=== PATIENT | female | born 1955 | race Caucasian/White ===

== ENCOUNTER 2017-08-31 11:49 | Inpatient (IN) ==
[2017-08-31] MEDS: CIPROFLOXACIN INJ 400 MG in PREMIX 1 EACH IV SCH (15:03)
[2017-08-31] MEDS: DEXTROSE 5% NACL 0.45% 1,000 ML IV SCH (15:03)
[2017-08-31] MEDS ORDERED: IBUPROFEN PO PRN (18:33)
[2017-08-31] MEDS ORDERED: DIPHENHYDRAMINE PO PRN (18:33)
[2017-08-31] MEDS: ATORVASTATIN 10 MG TABLET PO SCH (22:15)
[2017-08-31] MEDS: CLINDAMYCIN INJ 300 MG in PREMIX 1 EACH IV SCH (22:15)
[2017-09-01] MEDS: CIPROFLOXACIN INJ 400 MG in PREMIX 1 EACH IV SCH ×2 (02:37→13:43)
[2017-09-01] MEDS: CLINDAMYCIN INJ 300 MG in PREMIX 1 EACH IV SCH ×4 (04:02→21:18)
[2017-09-01] MEDS ORDERED: LEVOTHYROXINE 75 MCG TABLET PO SCH (06:30)
[2017-09-01 06:37] LABS: Basophils % 0.5 % (0.0-0.8); Eosinophils # 0.1 10*3/uL (0.0-0.87); Eosinophils % 1.1 % (0.00-10.9); Hematocrit 37.3 VOL% (35.7-47.0); Immature Granulocytes % 0.5 %; Immature Granulocytes Absolute 0.03 #; Lymphocytes # 0.8 10*3/uL (1.4-4.0); Lymphocytes % 13.3 % (21.3-54.2); Mean Corpuscular HGB Conc 34.9 GM/DL (32-36); Mean Corpuscular Hemoglobin 32 PG (27-34); Mean Platelet Volume 10.6 FL (9.6-12.0); Monocytes # 0.5 10*3/uL (0.11-0.8); Monocytes % 8.2 % (1.7-12.7); Neutrophils # 4.8 10*3/uL (1.4-7.4); Neutrophils % 76.4 % (38.7-73.9); Platelet Count 190 T/CUMM (130-400); Red Cell Distribution Width 13.2 % (9.3-17.3); White Blood Count 6.3 T/CUMM (4-12)
[2017-09-01 07:02] LABS: Albumin 3.2 G/DL (3.4-5.0); Bilirubin,Total 3.6 MG/DL (0.2-1.0); Calcium 8.6 MG/DL (8.5-10.1); Potassium 3.8 MMOL/L (3.5-5.1); Total Protein 5.7 G/DL (6.4-8.3)
[2017-09-01 07:05] LABS: Free T4 (Free Thyroxine) 1.27 NG/DL (0.76-1.46)
[2017-09-01] MEDS: DEXTROSE 5% NACL 0.45% 1,000 ML IV SCH (07:06)
[2017-09-01] MEDS ORDERED: ACETAMINOPHEN 325 MG TABLET PO PRN (07:37)
[2017-09-01] MEDS ORDERED: ONDANSETRON 4 MG/2 ML VIAL IV PRN (07:45)
[2017-09-01] MEDS: KETOROLAC 15 MG/1 ML VIAL IV PRN ×2 (07:52→17:57)
[2017-09-01] MEDS ORDERED: BISACODYL 5 MG TABLET PO ONE (08:58)
[2017-09-01] MEDS: SERTRALINE 50 MG TABLET PO SCH (08:59)
[2017-09-01] MEDS: metroNIDAZOLE INJ 500 MG in PREMIX 1 EACH IV SCH ×2 (12:06→19:16)
[2017-09-01] MEDS: ATORVASTATIN 10 MG TABLET PO SCH (21:18)
[2017-09-02] MEDS: CLINDAMYCIN INJ 300 MG in PREMIX 1 EACH IV SCH ×4 (01:32→22:16)
[2017-09-02] MEDS: CIPROFLOXACIN INJ 400 MG in PREMIX 1 EACH IV SCH ×2 (02:53→14:49)
[2017-09-02] MEDS: DEXTROSE 5% NACL 0.45% 1,000 ML IV SCH ×4 (02:54→22:19)
[2017-09-02] MEDS: metroNIDAZOLE INJ 500 MG in PREMIX 1 EACH IV SCH ×3 (04:51→20:32)
[2017-09-02] MEDS: LEVOTHYROXINE 50 MCG TABLET PO SCH (05:50)
[2017-09-02 07:01] LABS: Basophils % 0.5 % (0.0-0.8); Eosinophils # 0.3 10*3/uL (0.0-0.87); Hemoglobin 12.5 GM/DL (12.0-16.0); Immature Granulocytes % 0.3 %; Immature Granulocytes Absolute 0.02 #; Lymphocytes # 0.9 10*3/uL (1.4-4.0); Lymphocytes % 14.6 % (21.3-54.2); Mean Corpuscular HGB Conc 34.7 GM/DL (32-36); Mean Corpuscular Hemoglobin 32 PG (27-34); Mean Corpuscular Volume 91.4 FL (87-102); Mean Platelet Volume 11.1 FL (9.6-12.0); Monocytes # 0.6 10*3/uL (0.11-0.8); Monocytes % 10.6 % (1.7-12.7); Neutrophils # 4.1 10*3/uL (1.4-7.4); Platelet Count 176 T/CUMM (130-400); Red Blood Count 3.94 MC/CUMM (3.8-5.5); Red Cell Distribution Width 13.2 % (9.3-17.3)
[2017-09-02 07:08] LABS: PT Patient Result 10.4 SECS
[2017-09-02 07:31] LABS: Bilirubin,Total 3.2 MG/DL (0.2-1.0); Calcium 8.1 MG/DL (8.5-10.1); Osmolality,Calculated 283.8 MOS/KG (273-304); Potassium 3.3 MMOL/L (3.5-5.1); Total Protein 5.6 G/DL (6.4-8.3)
[2017-09-02] MEDS: SERTRALINE 50 MG TABLET PO SCH (08:11)
[2017-09-02] MEDS ORDERED: INDOMETHACIN SUPP 50 MG SUPP RECTAL ONE ×2 (09:40→10:30)
[2017-09-02] MEDS ORDERED: fentaNYL 100 MCG/2 ML VIAL ONE (10:12)
[2017-09-02] MEDS ORDERED: MIDAZOLAM 2 MG/2 ML VIAL ONE (10:13)
[2017-09-02] MEDS ORDERED: LIDOCAINE 100 MG/5 ML SYRINGE ONE (11:39)
[2017-09-02] MEDS ORDERED: PROPOFOL 200 MG/20 ML VIAL IV ONE (11:39)
[2017-09-02] MEDS ORDERED: ONDANSETRON 4 MG/2 ML VIAL ONE (11:39)
[2017-09-02] MEDS ORDERED: SUCCINYLCHOLINE 200 MG/10 ML VIAL ONE (11:39)
[2017-09-02] MEDS ORDERED: GLYCOPYRROLATE 0.4 MG/2 ML VIAL ONE (11:39)
[2017-09-02] MEDS: ATORVASTATIN 10 MG TABLET PO SCH (21:12)
[2017-09-02] MEDS ORDERED: PHENOL 1.4% THROAT SPRAY 177 ML BOTTLE PO PRN (21:50)
[2017-09-03] MEDS: CIPROFLOXACIN INJ 400 MG in PREMIX 1 EACH IV SCH (01:30)
[2017-09-03] MEDS: metroNIDAZOLE INJ 500 MG in PREMIX 1 EACH IV SCH (03:36)
[2017-09-03] MEDS: CLINDAMYCIN INJ 300 MG in PREMIX 1 EACH IV SCH ×2 (04:42→11:36)
[2017-09-03] MEDS: DEXTROSE 5% NACL 0.45% 1,000 ML IV SCH ×2 (08:13→21:05)
[2017-09-03] MEDS: LEVOTHYROXINE 50 MCG TABLET PO SCH (08:13)
[2017-09-03] MEDS: SERTRALINE 50 MG TABLET PO SCH ×2 (08:13→16:00)
[2017-09-03] MEDS ORDERED: cefOXitin 2,000 MG in SYRINGE 1 EACH IV ONE (09:00)
[2017-09-03 09:36] LABS: Calcium 8.1 MG/DL (8.5-10.1); Osmolality,Calculated 285.8 MOS/KG (273-304); Potassium 3.1 MMOL/L (3.5-5.1)
[2017-09-03] MEDS ORDERED: POTASSIUM CHLORIDE RIDER 200 ML IV ONE (09:36)
[2017-09-03] MEDS ORDERED: LIDOCAINE 1%/EPI INJ 20 ML VIAL ONE (09:42)
[2017-09-03] MEDS ORDERED: TISSUE ADHESIVE 1 EACH APPLICATOR TOP ONE (09:42)
[2017-09-03] MEDS ORDERED: SUGAMMADEX 200 MG/2 ML VIAL IV ONE (10:16)
[2017-09-03] MEDS ORDERED: HYDROmorphone 2 MG/1 ML VIAL IV PRN (10:49)
[2017-09-03] MEDS ORDERED: ONDANSETRON 4 MG/2 ML VIAL IV PRN (10:49)
[2017-09-03] MEDS ORDERED: MEPERIDINE 25 MG/1 ML VIAL IV PRN (10:49)
[2017-09-03] MEDS ORDERED: SEVOFLURANE 1 UNIT/15 MINUTE INH ONE (10:58)
[2017-09-03] MEDS ORDERED: fentaNYL 100 MCG/2 ML VIAL ONE (10:58)
[2017-09-03] MEDS ORDERED: PROPOFOL 200 MG/20 ML VIAL IV ONE (10:58)
[2017-09-03] MEDS ORDERED: ROCURONIUM 100 MG/10 ML VIAL IV ONE (10:59)
[2017-09-03] MEDS ORDERED: DEXAMETHASONE 4 MG/1 ML VIAL ONE (10:59)
[2017-09-03] MEDS ORDERED: ONDANSETRON 4 MG/2 ML VIAL ONE (10:59)
[2017-09-03] MEDS ORDERED: SUCCINYLCHOLINE 200 MG/10 ML VIAL ONE (10:59)
[2017-09-03] MEDS ORDERED: MIDAZOLAM 2 MG/2 ML VIAL ONE (10:59)
[2017-09-03] MEDS ORDERED: GLYCOPYRROLATE 0.4 MG/2 ML VIAL ONE (10:59)
[2017-09-03] MEDS: ATORVASTATIN 10 MG TABLET PO SCH (21:05)
[2017-09-04 06:07] LABS: Basophils % 0.2 % (0.0-0.8); Eosinophils % 0.4 % (0.00-10.9); Hematocrit 33.9 VOL% (35.7-47.0); Hemoglobin 11.5 GM/DL (12.0-16.0); Immature Granulocytes % 0.4 %; Immature Granulocytes Absolute 0.04 #; Lymphocytes # 1.7 10*3/uL (1.4-4.0); Lymphocytes % 15.1 % (21.3-54.2); Mean Corpuscular HGB Conc 33.9 GM/DL (32-36); Mean Corpuscular Hemoglobin 32 PG (27-34); Mean Corpuscular Volume 93.9 FL (87-102); Mean Platelet Volume 10.6 FL (9.6-12.0); Monocytes # 0.7 10*3/uL (0.11-0.8); Monocytes % 6.3 % (1.7-12.7); Neutrophils # 8.5 10*3/uL (1.4-7.4); Neutrophils % 77.6 % (38.7-73.9); Platelet Count 185 T/CUMM (130-400); Red Blood Count 3.61 MC/CUMM (3.8-5.5); Red Cell Distribution Width 13.2 % (9.3-17.3)
[2017-09-04 06:25] LABS: Albumin 2.7 G/DL (3.4-5.0); Bilirubin,Direct 0.32 MG/DL (0.0-0.20); Bilirubin,Total 0.7 MG/DL (0.2-1.0); Calcium 8.3 MG/DL (8.5-10.1); Osmolality,Calculated 285.7 MOS/KG (273-304); Potassium 3.1 MMOL/L (3.5-5.1)
[2017-09-04] MEDS: LEVOTHYROXINE 50 MCG TABLET PO SCH (06:32)
[2017-09-04] MEDS: POTASSIUM CHLORIDE 20 MEQ TABLET PO PRN ×4 (08:34→10:00)
[2017-09-04] MEDS: SERTRALINE 50 MG TABLET PO SCH (08:34)
[2017-09-04] MEDS: DEXTROSE 5% NACL 0.45% 1,000 ML IV SCH (10:52)
[2017-09-04 11:25] VITALS: BP 125/71
== END 2017-09-04 13:09 | disposition home or self-care (01) | DRG 418 ==
LOC: N.2E 12:08 → N.5E 15:09
PROVIDERS: ADMIT Internal Medicine Pulmonary Disease; ATTEND Internal Medicine Pulmonary Disease
PROC: LAPCHOL (~2017-08-31)